=== PATIENT | male | born 1955 | race Caucasian/White ===

== ENCOUNTER 2022-08-13 09:52 | Emergency (ER) | payer MEDICAID ==
[~2022-08-13] VITALS: Ht 185.4 cm; Wt 90.0 kg
[2022-08-13 10:00] VITALS: BP 126/72
[2022-08-13] MEDS ORDERED: IBUPROFEN 600MG TABLET PO STA (12:09)
[2022-08-13 12:45] LABS: BASOPHILS % 0.5 % (0.0-2.0); EOSINOPHILS % 1.8 % (0.0-5.0); HEMATOCRIT. 40.2 % (42.0-52.0); LYMPHOCYTES % 23.2 % (20.0-50.0); MEAN CORPUSCULAR HEMOGLOBIN 31.6 pg (28.0-32.0); MEAN CORPUSCULAR VOLUME 97.4 fL (80.0-94.0); MEAN PLATELET VOLUME 6.8 fl (7.4-10.4); MONOCYTES % 7.2 % (2.0-8.0); NEUTROPHILS % 67.3 % (40.0-76.0); PLATELET 357 x1000/uL (130-400); RED BLOOD CELL COUNT 4.13 mill/uL (4.7-6.1); RED CELL DISTRIBUTION WIDTH 13.9 % (11.6-14.6)
[2022-08-13 12:53] LABS: CHLORIDE 102 mEq/L (98-107)
== END 2022-08-13 15:25 | disposition home or self-care (01) ==
LOC: ER 09:52
DX: M17.12 Unilateral primary osteoarthritis, left knee (principal); M79.672 Pain in left foot; R26.2 Difficulty in walking, not elsewhere classified; Z91.81 History of falling; Z87.81 Personal history of (healed) traumatic fracture
CPT/HCPCS: 36415; 71045; 73562; 80053; 83880; 84484; 85025; 93005; 99285